=== PATIENT | female | born 1985 | race Caucasian/White ===

== ENCOUNTER 2023-11-04 12:15 | Emergency (ER) | payer BC, SELFPAY ==
[2023-11-04 12:27] VITALS: BP 146/94
--- NOTE | 2023-11-04 12:44 | ED.GENMED ---
History of Present Illness
<Miley Montesinos PA-C - Last Filed: 11/04/23 17:29>
General
Chief Complaint: Chest Pain
Source: patient
Exam Limitations: none
Time Seen by Provider: 11/04/23 12:44
Nursing documentation reviewed up to this point in time: agreed with
History of Present Illness
History of Present Illness:
38-year-old female with no past medical history, Gisel HOLLY in place presenting emergency department today with concerns of left-sided chest discomfort. Patient reports that this has been going on for the past 2 days on and off. She reports that
when this first started, she was sitting on the couch. She denies any injury to the chest wall. She denies any inciting event. Patient reports that she thought nothing of it at this time, as she has gotten similar pain in the past which has
resolved on its own. Patient denies cough or cold, shortness of breath. She feels like the pain relieves when she takes a deep breath or massages the area. She denies any history of reflux. She denies recent long distance travel, lower extremity
pain or swelling. Patient denies family history of cardiac disease. Patient does not smoke or drink daily. Patient states that the pain then persisted. She denies shortness of breath does feel as though the chest pain she saw her primary care
provider who ordered EKG she which was essentially normal, blood work, she had went to urgent care and they did a chest x-ray which showed no acute abnormalities. D-dimer was ordered as outpatient but she not get the results yet.
Review of Systems
<Miley Montesinos PA-C - Last Filed: 11/04/23 17:29>
Review of Systems
All Other Systems: ROS reviewed and negative except as documented in HPI and ROS
Phy Exam
<Miley Montesinos PA-C - Last Filed: 11/04/23 17:29>
Physical Exam
Physical Exam:
General: Patient is well appearing and in no acute distress; non-toxic
Skin: Warm and dry, no rashes or lesions
Head: Normocephalic, atraumatic
Eyes: Sclera non-icteric. EOMs intact.
Cardiac: Regular rate and rhythm, no murmurs. No tenderness palpation of the external chest wall.
Peripheral Vascular: No lower extremity swelling or edema, 2+ dorsalis pedis pulses bilaterally, negative Homans' sign
Pulm: Normal respiratory effort, no wheezes, rales, rhonchi, equal breath sounds
Musculoskeletal: No left chest pain with passive range of motion of left upper extremity
Neuro: CN II-XII intact, no focal neurologic deficits.
Psychiatric: Appropriate mood and affect.
Scores
<Miley Montesinos PA-C - Last Filed: 11/04/23 17:29>
Heart Score for Chest Pain Patients
STEMI patient?: No
History: Slightly or Non-Suspicious
ECG: Normal
Age: </= 45 years
Risk Factors: No Risk Factors
Troponin: </= Normal Limit
Heart Score for Chest Pain Patients: 0
Heart Score Risk: 2.5% MACE over next 6 weeks
Course
<Miley Montesinos PA-C - Last Filed: 11/04/23 17:29>
Orders/Labs/Results
Orders:
Orders
11/04/23 12:18
EKG [Electrocardiogram (*1)] Urgent
Reason for Study: Chest Pain
11/04/23 12:19
EKG- Treatment ONCE
11/04/23 13:13
CBC/With Diff [Complete Blood Count/With Diff] Urgent
Troponin I Urgent
11/04/23 13:44
Comprehensive Metabolic Panel Routine
11/04/23 14:12
D-Dimer Urgent
Abnormal Lab Results
11/04/23
13:13
MCH 31.7 H pg
(27.0-31.0)
11/04/23 13:13
11/04/23 13:44
Vital Signs
Initial and Last Documented VS:
Initial Vital Signs
Temp Pulse Resp BP Pulse Ox
99 F 73 16 146/94 98
11/04/23 12:27 11/04/23 12:27 11/04/23 12:27 11/04/23 12:27 11/04/23 12:27
Last Documented Vital Signs
Temp Pulse Resp BP Pulse Ox
99 F 80 14 119/86 100
11/04/23 12:27 11/04/23 14:45 11/04/23 14:45 11/04/23 14:00 11/04/23 14:45
<Chi Fry, DO - Last Filed: 11/04/23 14:52>
Orders/Labs/Results
Orders:
Orders
11/04/23 12:18
EKG [Electrocardiogram (*1)] Urgent
Reason for Study: Chest Pain
11/04/23 12:19
EKG- Treatment ONCE
11/04/23 13:13
CBC/With Diff [Complete Blood Count/With Diff] Urgent
Troponin I Urgent
11/04/23 13:44
Comprehensive Metabolic Panel Routine
11/04/23 14:12
D-Dimer Urgent
Abnormal Lab Results
11/04/23
13:13
MCH 31.7 H pg
(27.0-31.0)
11/04/23 13:13
11/04/23 13:44
Vital Signs
Initial and Last Documented VS:
Initial Vital Signs
Temp Pulse Resp BP Pulse Ox
99 F 73 16 146/94 98
11/04/23 12:27 11/04/23 12:27 11/04/23 12:27 11/04/23 12:27 11/04/23 12:27
Last Documented Vital Signs
Temp Pulse Resp BP Pulse Ox
99 F 80 14 119/86 100
11/04/23 12:27 11/04/23 14:45 11/04/23 14:45 11/04/23 14:00 11/04/23 14:45
<Miley Montesinos PA-C - Last Filed: 11/04/23 17:29>
MDM/Problems Addressed
Differential Diagnosis Includes:
Differentials include costochondritis, musculoskeletal sprain/strain, GERD, ACS, PACs, PVCs, sinus tachycardia
MDM/Problems Addressed:
Chest pain:
38-year-old female with no past medical history, Gisel IUD in place presenting emergency department today with concerns of left-sided chest discomfort. Patient reports that this has been going on for the past 2 days on and off. She reports that
when this first started, she was sitting on the couch. She denies any injury to the chest wall. Denies family history of cardiac disease. She is not a smoker. She had outpatient EKG and lab work which was unremarkable, had outpatient chest x-ray
which was negative. Here in emergency department, patient has some mild right axis deviation on EKG but no concerning ischemic changes. Initial troponin undetectable. D-dimer negative. Suspect costochondritis or musculoskeletal sprain/strain,
considering pain improves with massage. Patient stable for outpatient follow-up with cardiology.
Chronic conditions affecting care:
n/a
Acute Exacerbation and/or Progression of Chronic Illness:
n/a
<Miley Montesinos PA-C - Last Filed: 11/04/23 17:29>
*Pulse Oximetry
Patient hypoxic: no
*EKG
Interpreted by ED Provider?: Yes
EKG Intrepretation Date: 11/04/23
Interpretation: normal
Comparison EKG: no comparison EKG present
Heart Rate: 65
Rate: normal
Rhythm: sinus
[place]: normal axis
Interval: normal interval
QRS Pattern: normal QRS
Ischemia: no ischemia
*Critical Care Note
Total Time (30-74mins, 75-104mins- exclusive of procedures): Not Applicable
ED Attending Note
<Miley Montesinos PA-C - Last Filed: 11/04/23 17:29>
-
Portions of this chart may have been created with voice recognition software.� Occasional wrong word or��sound alike� substitutions may have occurred due to the inherent limitations of voice recognition software.
<Chi Fry DO - Last Filed: 11/04/23 14:52>
ED Attending Note
Patient seen and examined by attending physician: Yes
I performed the substantive portion of visit, reviewed & personally made and approve the management plan that is documented in note by myself or SANDY.: Yes
I performed a history and physical exam of patient and discussed management with resident, I reviewed resident's note and agree with documented findings and plan of care.: Yes
ED Attending Note:
I evaluated the patient at bedside. The patient is very well-appearing on my assessment. D-dimer reassuring. The patient even questions if there is a component of anxiety.
Discharge Plan
Departure
Patient Disposition: Home (Routine Discharge)
Date of Disposition: 11/04/23
Time of Disposition: 14:40
Patient with high blood pressure during this ER visit?: Yes
Condition: Good
Discharge Problem:
Chest pain
Instructions: Chest Pain CBC Follow Up, BLOOD PRESSURE
Activity Restrictions/Additional Instructions:
Please follow-up with your primary care provider.
Please follow through with Holter monitor testing. You should receive a call from our cardiology group within a few days to schedule an appointment.
Please return to the emergency department immediately should you experience any acute worsening of your symptoms, shortness of breath, syncopal episodes, dizziness, lightheadedness, numbness or tingling in your jaw or left arm, nausea or vomiting,
belly pain, fevers or chills, or any signs or symptoms concerning to you.
Interventions
Interventions:
*Risk Screen - Suicide Last Done: 11/04/23 12:27
*General Assessment Last Done: 11/04/23 12:27
*Neglect/Abuse Screening Last Done: 11/04/23 12:27
ED- Fall Risk Assessment Last Done: 11/04/23 14:28
*Nursing Disposition Last Done: 11/04/23 15:14
ED- Cardiac Assessment Last Done: 11/04/23 14:28
Discharge Date and Time
Discharge Date/Time: 11/04/23 15:14
Print Language: LEBANESE
[2023-11-04 13:10] VITALS: BP 126/86
[2023-11-04 13:23] LABS: % Basophils 1.5 % (0-2); % Eosinophils 1.2 % (0-6); % Immature Granulocytes 0.2 % (0-0.5); % Monocytes 5.6 % (1.7-9.3); % Neutrophils 63.5 % (42.2-75.2); Absolute Basophils 0.1 10^3/uL (0-0.2); Absolute Eosinophils 0.1 10^3/uL (0-0.7); Absolute Lymphocytes 1.7 10^3/uL (1.2-3.4); Absolute Monocytes 0.3 10^3/uL (0.1-0.6); Absolute Neutrophils 3.8 10^3/uL (1.4-6.5); Hematocrit 39.1 % (37.0-47.0); Hemoglobin 13.8 g/dL (12.0-16.0); Mean Corp Hgb Conc. 35.3 g/dL (33.0-37.0); Mean Corpuscular Hgb 31.7 pg (27.0-31.0); Mean Corpuscular Volume 89.9 fL (81.0-99.0); Mean Platelet Volume 9.2 fL (7.4-10.4); Nucleated Red Blood Cells % 0 %; Platelet Count 276 10^3/uL (130-400); Red Blood Cell Count 4.35 10^6/uL (4.20-5.40); White Blood Cell Count 5.9 10^3/uL (4.8-10.8)
[2023-11-04 13:49] LABS: Troponin I < 0.012 ng/ml
[2023-11-04 14:00] VITALS: BP 119/86
[2023-11-04 14:24] LABS: ALT (SGPT) 16 U/L (0-35); AST (SGOT) 22 U/L (14-36); Albumin 4.3 g/dl (3.5-5.0); Alkaline Phosphatase 50 U/L (38-126); Blood Urea Nitrogen 11 mg/dl (7-17); Carbon Dioxide 23 mmol/L (22-30); Chloride 107 mmol/L (98-107); Glucose 81 mg/dl (70-99); Sodium 140 mmol/L (135-145); Total Bilirubin 1.2 mg/dl (0.2-1.3); Total Protein 6.7 g/dl (6.3-8.2); eGFR > 60.00
[2023-11-04 14:36] LABS: D-Dimer < 0.27 ug/mlFEU (0.00-0.50)
== END 2023-11-04 15:14 | disposition home or self-care (01) ==
LOC: EMR 12:15
PROVIDERS: Physician Assistant; EMERGENCY PHYSICIAN Emergency Medicine; FAMILY PHYSICIAN Physician Assistant
DX: R07.89 Other chest pain (principal)
CPT/HCPCS: 99283; 80053; 84484; 85025; 85379; 93005